=== PATIENT | female | born 1995 | race Caucasian/White ===

== ENCOUNTER 2021-09-07 16:53 | Emergency (ER) | payer MEDICAID, OTHER ==
[~2021-09-07] VITALS: Ht 165.1 cm; Wt 68.0 kg
[2021-09-07 20:00] VITALS: BP 132/65
[2021-09-07 20:14] LABS: Amphetamine Screen, Urine NEGATIVE (NEGATIVE); Barbiturate Scree,Urine NEGATIVE (NEGATIVE); Benzodiazephine Screen, Urine NEGATIVE (NEGATIVE); Cannabinoid Screen, Urine POSITIVE (NEGATIVE); Cocaine Screen, Urine NEGATIVE (NEGATIVE); Opiate Scree,Urine NEGATIVE (NEGATIVE); Phencyclidine Screen, Urine NEGATIVE (NEGATIVE)
== END 2021-09-07 20:50 | disposition left against medical advice (07) ==
LOC: ER 16:53 → EDBD 16:53 → ER 20:50
DX: F41.9 Anxiety disorder, unspecified (principal)
CPT/HCPCS: 80307

== ENCOUNTER 2022-02-28 00:14 | Emergency (ER) | payer MEDICAID ==
[~2022-02-28] VITALS: Ht 162.6 cm; Wt 110.0 kg
[2022-02-28] MEDS ORDERED: LORazepam 2MG/ML-1ML VIAL IV ONE (00:45)
[2022-02-28] MEDS ORDERED: LIDOCAINE W/ EPINEPHRINE 1% 20ML VIAL SC ONE (00:45)
[2022-02-28] MEDS ORDERED: MORPHINE SULFATE 4 MG/ML SYR/VIAL IV ONE (00:45)
[2022-02-28] MEDS ORDERED: ONDANSETRON HCL 4 MG/2 ML VIAL IV ONE (00:45)
[2022-02-28 00:57] LABS: Basophils # (auto) 0.1 10 ^3/uL (0-0.2); Basophils % (auto) 0.5 % (0.0-2.0); Eosinophils # (auto) 0 10 ^3/uL (0-0.8); Eosinophils % (auto) 0.4 % (0.0-7.0); Hematocrit 40.3 % (36.0-46.0); Hemoglobin 13.4 g/dL (12.2-16.2); Lymphocytes # (auto) 1.8 10 ^3/uL (0.4-5.4); Lymphocytes % (auto) 14.7 % (10.0-50.0); Mean Corpuscular Hemoglobin 29.6 pg (28.0-32.0); Mean Corpuscular Hgb Conc. 33.2 g/dL (32.0-36.0); Mean Corpuscular Volume 89.1 fL (80.0-100.0); Monocytes # (auto) 0.7 10 ^3/uL (0-1.3); Monocytes % (auto) 5.8 % (0.0-12.0); Neutrophils # (auto) 9.7 10 ^3/uL (1.6-8.6); Neutrophils % (auto) 78.6 % (37.0-80.0); Nucleated Red Blood Cells % 0.1 %; Red Blood Cells 4.52 10^6/uL (4.0-5.20); Red Cell Distribution Width 13.4 % (11.8-14.3); White Blood Cell 12.4 10^3/uL (4.4-10.8)
[2022-02-28] MEDS ORDERED: LIDOCAINE W/ EPINEPHRINE 2% INJ 20ML VIAL IJ ONE (01:00)
[2022-02-28 01:11] LABS: INR 1.06 (0.9-1.15); Partial Thromboplastin Time 25.1 sec (24.6-33.4)
[2022-02-28 01:21] LABS: Albumin 4.3 g/dL (3.4-5.0); BUN/Creatinine Ratio 8.9; Calcium 8.5 mg/dL (8.5-10.1); Potassium 3.5 mmol/L (3.5-5.1)
[2022-02-28 01:24] LABS: Bilirubin, Total 0.4 mg/dL (0.2-1.0); Total Protein 7.6 g/dL (6.4-8.2)
[2022-02-28 03:48] LABS: Amphetamine Screen, Urine NEGATIVE (NEGATIVE); Barbiturate Scree,Urine NEGATIVE (NEGATIVE); Benzodiazephine Screen, Urine NEGATIVE (NEGATIVE); Cannabinoid Screen, Urine POSITIVE (NEGATIVE); Cocaine Screen, Urine NEGATIVE (NEGATIVE); Phencyclidine Screen, Urine NEGATIVE (NEGATIVE)
[2022-02-28 03:53] LABS: Urine Bacteria FEW /hpf (None Seen); Urine Blood Negative /uL (Negative); Urine Hyaline Cast FEW /lpf (0 - 2); Urine Mucus FEW (None Seen); Urine Specific Gravity 1.008 (1.001-1.035); Urine WBC 1 /hpf (0 - 5)
[2022-02-28 03:55] LABS: Opiate Scree,Urine NEGATIVE (NEGATIVE)
[2022-02-28] MEDS ORDERED: ACETAMINOPHEN 500 MG TAB PO ONE (08:15)
[2022-02-28] MEDS ORDERED: ACETAMINOPHEN 325 MG TAB PO ONE (20:15)
[2022-02-28] MEDS ORDERED: lamoTRIgine 25 MG TAB PO ONE (22:00)
[2022-03-01] MEDS ORDERED: LORazepam 0.5 MG TAB PO ONE (01:15)
[2022-03-01] MEDS ORDERED: lamoTRIgine 25 MG TAB PO ONE (21:30)
[2022-03-02] MEDS ORDERED: LORazepam 0.5 MG TAB PO ONE
[2022-03-02] MEDS ORDERED: lamoTRIgine 25 MG TAB PO ONE (22:30)
[2022-03-03 07:36] VITALS: BP 122/68
== END 2022-03-03 00:31 | disposition home or self-care (01) ==
LOC: EDBD 00:14 → EEVIPCON 00:18 → ER 00:18
DX: S31.119A Laceration without foreign body of abdominal wall, unspecified quadrant without penetration into peritoneal cavity, initial encounter (principal); S20.311A Abrasion of right front wall of thorax, initial encounter; S00.83XA Contusion of other part of head, initial encounter; S10.91XA Abrasion of unspecified part of neck, initial encounter; F32.9 Major depressive disorder, single episode, unspecified; Z20.822 Contact with and (suspected) exposure to COVID-19; X78.9XXA Intentional self-harm by unspecified sharp object, initial encounter; Y93.89 Activity, other specified; Y92.89 Other specified places as the place of occurrence of the external cause; Y99.8 Other external cause status
CPT/HCPCS: 12006; 36415; 70450; 74176; 80053; 80307; 80320; 81001; 81025; 85025; 85610; 85730; 87426; 96374; 96375; 99285; J2060; J2270; J2405

== ENCOUNTER 2022-03-08 11:17 | Emergency (ER) | payer MEDICAID ==
[~2022-03-08] VITALS: Ht 167.6 cm; Wt 93.0 kg
[2022-03-08 13:06] VITALS: BP 112/70
== END 2022-03-08 13:38 | disposition home or self-care (01) ==
LOC: ER 11:17
DX: S31.115D Laceration without foreign body of abdominal wall, periumbilic region without penetration into peritoneal cavity, subsequent encounter (principal); X58.XXXD Exposure to other specified factors, subsequent encounter